=== PATIENT | male | born 1970 | race Caucasian/White ===

== ENCOUNTER 2019-09-06 21:57 | Emergency (ER) | payer OTHER ==
[~2019-09-06] VITALS: Ht 190.5 cm; Wt 167.8 kg
[2019-09-06] MEDS ORDERED: ZOLOFT100 MG PO (22:09)
[2019-09-06] MEDS ORDERED: NEXIUM40 M2 PO (22:10)
[2019-09-06] MEDS ORDERED: XANAX 0.25 MG0.25 MG PO (22:10)
[2019-09-06] MEDS ORDERED: KEFLEX500 M1 PO (23:20)
[2019-09-06] MEDS ORDERED: ONDANSETRON HCL4 M2 PO (23:20)
[2019-09-06 23:26] LABS: INFLUENZA A ANTIGEN Negative (Negative); INFLUENZA B ANTIGEN Negative (Negative)
[2019-09-06 23:33] LABS: ABSOLUTE BASOPHILS 0.1 thou/uL (0.0-0.2); ABSOLUTE LYMPHOCYTES 1.5 thou/uL (0.8-5.3); ABSOLUTE MONOCYTES 0.4 thou/uL (0.0-1.2); ABSOLUTE NEUTROPHILS 10.7 thou/uL (1.6-8.1); EOSINOPHILS 0.4 %; HEMATOCRIT 43.6 % (42.0-52.0); HEMOGLOBIN 14.9 gm/dL (14.0-18.0); LYMPHOCYTES 11.5 %; MCHC 34.2 g/dL (28.0-37.0); MCV 84.8 fL (80.0-100.0); MONOCYTES 3.5 %; MPV 8.3 fl. (7.2-11.1); NUCLEATED RBCS 0 /100WBC; PLATELET COUNT* 310 thou/uL (150-400); POLYS 83.6 %; RBC 5.14 mil/uL (4.50-6.00); WBC 12.8 thou/uL (4.0-11.0)
[2019-09-06 23:36] LABS: CALCIUM 9.7 mg/dL (8.5-10.1); CREATININE 0.8 mg/dL (0.6-1.3); POTASSIUM 4.4 mmol/L (3.5-5.1)
[2019-09-06 23:41] LABS: ALBUMIN 3.7 g/dL (3.4-5.0); TOTAL BILIRUBIN 0.7 mg/dL (<0.1-1.0)
[2019-09-07 00:06] VITALS: BP 145/89
--- NOTE | 2019-09-07 09:59 | EKG ---
[place] [address] ELECTROCARDIOGRAM REPORT Name: EMI PIMENTEL Room: [facility]#: [id number] Admission: 09/06/19 Attend Phys: Discharge: 09/07/19 Date of : 68 Report #: [id number] THIS REPORT FOR: //name// [facility] ED Test Date: 2019-09-06 Test Time: 23:11:57 Pat Name: EMI PIMENTEL Department: Room: Gender: M [employer]: CELENA : 1970 Requested By: Candi Smallwood Order Number: [id number] MD: Rj Fiore Measurements Intervals [place] Rate: 47 P: 2 LA: 196 QRS: -12 QRSD: 110 T: 12 QT: 441 QTc: 390 Interpretive Statements Sinus bradycardia Low voltage, precordial leads Abnormal R-wave progression, early transition Left ventricular hypertrophy Compared to ECG 10/21/2009 12:20:51 Low QRS voltage now present Left ventricular hypertrophy now present Electronically Signed On 09-07-2019 9:59:32 CDT by Rj Fiore [email or web address] <ELECTRONICALLY SIGNED> By: Rj Fiore MD, FACC 09/07/19 0959 10 10 Rj Fiore MD, FAC /EPI
== END 2019-09-07 00:06 | disposition home or self-care (01) ==
LOC: M.ERS 21:57
PROVIDERS: Physician Assistant
DX: K08.89 Other specified disorders of teeth and supporting structures (principal); R00.1 Bradycardia, unspecified; R68.83 Chills (without fever); R11.0 Nausea; M79.10 Myalgia, unspecified site; Z88.8 Allergy status to other drugs, medicaments and biological substances

== ENCOUNTER 2019-11-21 22:45 | Emergency (ER) | payer OTHER ==
[~2019-11-21] VITALS: Ht 190.5 cm; Wt 158.8 kg
[~2019-11-21 22:45] MED LIST: KEFLEX500 M1 PO; NEXIUM40 M2 PO; ONDANSETRON HCL4 M2 PO; XANAX 0.25 MG0.25 MG PO; ZOLOFT100 MG PO
[2019-11-22 00:23] LABS: ABSOLUTE BASOPHILS 0.1 thou/uL (0.0-0.2); ABSOLUTE EOSINOPHILS 0.1 thou/uL (0.0-0.7); ABSOLUTE MONOCYTES 0.8 thou/uL (0.0-1.2); ABSOLUTE NEUTROPHILS 12.1 thou/uL (1.6-8.1); BASOPHILS 0.6 %; EOSINOPHILS 0.4 %; HEMATOCRIT 43.4 % (42.0-52.0); HEMOGLOBIN 14.9 gm/dL (14.0-18.0); LYMPHOCYTES 13.4 %; MCH 28.9 pg (26.0-34.0); MCHC 34.2 g/dL (28.0-37.0); MCV 84.4 fL (80.0-100.0); MONOCYTES 5.6 %; MPV 7.9 fl. (7.2-11.1); NUCLEATED RBCS 0 /100WBC; PLATELET COUNT* 347 thou/uL (150-400); RBC 5.14 mil/uL (4.50-6.00); RDW-CV 14.3 % (10.5-14.5); WBC 15.1 thou/uL (4.0-11.0)
[2019-11-22 00:50] LABS: CALCIUM 8.8 mg/dL (8.5-10.1); CREATININE 1.5 mg/dL (0.6-1.3); POTASSIUM 4.6 mmol/L (3.5-5.1)
[2019-11-22 01:16] LABS: URINE BILIRUBIN NEGATIVE (Negative); URINE BLOOD NEGATIVE (Negative); URINE CLARITY CLEAR; URINE COLOR YELLOW; URINE GLUCOSE-RANDOM NEGATIVE (Negative); URINE KETONES NEGATIVE (Negative); URINE LEUKOCYTES-REFLEX NEGATIVE (Negative); URINE NITRITE-REFLEX NEGATIVE (Negative); URINE PROTEIN NEGATIVE (Negative); URINE UROBILINOGEN 0.2 E.U./dl (0.2-1.0)
[2019-11-22] MEDS ORDERED: PERCOCET 7.5-31 EAC1 PO (02:22)
[2019-11-22] MEDS ORDERED: FLOMAX0.4 MG PO (02:22)
[2019-11-22] MEDS ORDERED: ZOFRAN ODT4 MG PO (02:36)
[2019-11-22 02:38] VITALS: BP 141/96
[2019-11-23] MEDS ORDERED: TORADOL 10 MG T10 MG PO (13:36)
[2019-11-23] MEDS ORDERED: PYRIDIUM200 M2 PO (13:36)
== END 2019-11-22 02:38 | disposition home or self-care (01) ==
LOC: M.ERS 22:45
PROVIDERS: Emergency Medicine
DX: N20.1 Calculus of ureter (principal); Z88.8 Allergy status to other drugs, medicaments and biological substances

== ENCOUNTER 2019-11-23 10:01 | Emergency (ER) | payer OTHER ==
[~2019-11-23] VITALS: Ht 190.5 cm; Wt 163.3 kg
[~2019-11-23 10:01] MED LIST changes: +FLOMAX0.4 MG PO; +PERCOCET 7.5-31 EAC1 PO; +ZOFRAN ODT4 MG PO
[2019-11-23 11:26] LABS: URINE BILIRUBIN NEGATIVE (Negative); URINE BLOOD 2+ (Negative); URINE CLARITY CLEAR; URINE COLOR YELLOW; URINE GLUCOSE-RANDOM NEGATIVE (Negative); URINE KETONES NEGATIVE (Negative); URINE LEUKOCYTES-REFLEX NEGATIVE (Negative); URINE NITRITE-REFLEX NEGATIVE (Negative); URINE PROTEIN NEGATIVE (Negative); URINE SPECIFIC GRAVITY >= 1.030 (1.005-1.030); URINE UROBILINOGEN 0.2 E.U./dl (0.2-1.0)
[2019-11-23 11:37] LABS: ABSOLUTE BASOPHILS 0.1 thou/uL (0.0-0.2); ABSOLUTE EOSINOPHILS 0.1 thou/uL (0.0-0.7); ABSOLUTE LYMPHOCYTES 1.3 thou/uL (0.8-5.3); ABSOLUTE MONOCYTES 0.5 thou/uL (0.0-1.2); ABSOLUTE NEUTROPHILS 9.9 thou/uL (1.6-8.1); BASOPHILS 1.1 %; EOSINOPHILS 1.1 %; HEMATOCRIT 43.6 % (42.0-52.0); HEMOGLOBIN 14.7 gm/dL (14.0-18.0); LYMPHOCYTES 10.8 %; MCH 28.5 pg (26.0-34.0); MCHC 33.6 g/dL (28.0-37.0); MCV 84.6 fL (80.0-100.0); MONOCYTES 4.5 %; MPV 7.8 fl. (7.2-11.1); NUCLEATED RBCS 0 /100WBC; PLATELET COUNT* 279 thou/uL (150-400); POLYS 82.5 %; RBC 5.15 mil/uL (4.50-6.00); RDW-CV 14.4 % (10.5-14.5)
[2019-11-23 11:44] LABS: CALCIUM 8.4 mg/dL (8.5-10.1); CREATININE 1.3 mg/dL (0.6-1.3); POTASSIUM 4.9 mmol/L (3.5-5.1)
[2019-11-23 11:48] LABS: ALBUMIN 3.4 g/dL (3.4-5.0); TOTAL BILIRUBIN 0.6 mg/dL (<0.1-1.0); TOTAL PROTEIN 7.4 g/dL (6.4-8.2)
[2019-11-23 11:54] LABS: BACTERIA-REFLEX 1-9 Few /HPF (None Seen); CALCIUM OXALATE >10 Many /LPF (None Seen); HYALINE CASTS 0-3 Few /LPF (None Seen); MUCUS None Seen strn/LPF (None Seen); SQUAMOUS 0-3 Few /LPF (0-3); URINE RBC 3-10 Few /HPF (0-2); URINE WBC-REFLEX 0-5 Rare /HPF (0-5)
[2019-11-23] MEDS ORDERED: TORADOL 10 MG T10 MG PO (13:36)
[2019-11-23] MEDS ORDERED: PYRIDIUM200 M2 PO (13:36)
[2019-11-23 14:07] VITALS: BP 134/75
== END 2019-11-23 14:08 | disposition home or self-care (01) ==
LOC: M.ERS 10:01
PROVIDERS: Personal Emergency Response Attendant
DX: N20.1 Calculus of ureter (principal); N23 Unspecified renal colic; Z88.8 Allergy status to other drugs, medicaments and biological substances